=== PATIENT | female | born 1990 | race Caucasian/White ===

== ENCOUNTER 2018-12-31 09:13 | Emergency (ER) | payer MEDICAID ==
[~2018-12-31] VITALS: Ht 160 cm; Wt 86.4 kg
[2018-12-31 09:33] VITALS: BP 133/71
[2018-12-31] MEDS ORDERED: ESCI5TAB PO ×2 (09:46→09:47)
== END 2018-12-31 09:54 | disposition home or self-care (01) ==
LOC: ER 09:14
DX: R42 Dizziness and giddiness (principal); Z76.0 Encounter for issue of repeat prescription; E03.9 Hypothyroidism, unspecified; F32.9 Major depressive disorder, single episode, unspecified; Z79.899 Other long term (current) drug therapy
CPT/HCPCS: 99283